=== PATIENT | male | born 1980 | race Caucasian/White ===

== ENCOUNTER → 2017-02-14 | Day surgery (SDC) | payer OTHER ==
[~2017-02-14] VITALS: Ht 177.8 cm; Wt 81.2 kg
[~2017-02-14] MED LIST: DEXAMETHASONE2 MG PO; FLAGYL500 MG PO; KEPPRA1000 MG PO; KLONOPIN0.5 MG PO; NEURONTIN300 MG PO; PROMETHEGAN12.5 MG RC; RITALIN20 MG PO; TEMODAR100 MG PO; TOPROL XL25 MG PO; VIMPAT100 MG PO; XARELTO20 MG PO; ZESTRIL2.5 MG PO; ZOFRAN8 MG PO; ZOLOFT100 MG PO
== END | disposition home or self-care (01) ==
LOC: SDC 07:22
DX: N20.0 Calculus of kidney (principal); G43.909 Migraine, unspecified, not intractable, without status migrainosus; F41.9 Anxiety disorder, unspecified; F32.9 Major depressive disorder, single episode, unspecified; Z79.899 Other long term (current) drug therapy; Z98.890 Other specified postprocedural states
CPT/HCPCS: C1758; J1885; J2704; Q9967